=== PATIENT | male | born 1995 ===

== ENCOUNTER 2024-05-02 08:26 | Outpatient (CLI) | payer OTHER ==
--- NOTE | 2024-05-02 10:23 | MRI Report ---
PROCEDURE: Femur/Thigh LT WO INDICATIONS: HAMSTRING INJURY TECHNIQUE: Noncontrast coronal and sagittal T1 spin echo and STIR; axial T1 spin echo and T2 fast spin echo with fat saturation through the left femur. COMPARISON: None. FINDINGS: Image quality: Excellent. Bones: The visualized bone marrow demonstrates normal signal on all sequences. The overlying cortex appears intact. No fractures lines or intra-osseous lesions. Soft tissues: The proximal hamstring tendon at the ischial tuberosity insertion is intact. There is f ull-thickness tear of the long head of the biceps femoris at the mid thigh, with associated muscle ed praveen and small hematoma measuring 1.5 x 8.2 cm (axial by craniocaudal dimension. Additional small amou nt of fluid tracking along the superficial muscular fascia of the posterior lateral compartment at th e distal thigh. IMPRESSION: Full-thickness tendon tear of the long head of the biceps femoris at the mid thigh with associated mu scle edema and small hematoma. Reviewed by: Dionna Becker MD on 05/02/2024 10:21 AM PDT Approved by: Dionna Becker MD on 05/02/2024 10:21 AM PDT Station ID: [id number]
== END 2024-05-02 08:27 | disposition home or self-care (01) ==
LOC: DI 08:26
DX: S76.312A Strain of muscle, fascia and tendon of the posterior muscle group at thigh level, left thigh, initial encounter (principal); S70.12XA Contusion of left thigh, initial encounter

== ENCOUNTER 2024-05-27 10:02 | Outpatient (CLI) | payer OTHER ==
--- NOTE | 2024-05-28 17:20 | XRAY Report ---
PROCEDURE: Femur 2+V LT (Weight Bearing) INDICATIONS: LEFT THIGH PAIN TECHNIQUE: 2 views of the left femur COMPARISON: None. FINDINGS: Normal bone mineralization. No fracture or intrinsic lesion. Soft tissues are normal IMPRESSION: Normal left femur radiograph Reviewed by: Neri Orellana MD on 05/28/2024 4:19 PM AKDONNA Approved by: Neri Orellana MD on 05/28/2024 4:19 PM AKDT Station ID: [id number]
== END 2024-05-27 10:03 | disposition home or self-care (01) ==
LOC: DI 10:02
PROVIDERS: ATTEND Orthopaedic Surgery
DX: M79.652 Pain in left thigh (principal)